=== PATIENT | female | born 1995 | race Caucasian/White ===

== ENCOUNTER 2017-02-15 16:57 | Emergency (ER) | payer OTHER ==
[~2017-02-15] VITALS: Ht 175.3 cm; Wt 113.6 kg
[2017-02-15] MEDS ORDERED: NS 1,000 ML IV SCH (17:32)
[2017-02-15] MEDS ORDERED: ONDANSETRON 4MG/2ML VIAL (J2405) IV ONE (17:45)
[2017-02-15] MEDS ORDERED: NS 1,000 ML IV ONE (17:45)
[2017-02-15] MEDS ORDERED: MORPHINE 2 MG/ML 1ML SYRINGE IV ONE ×3 (17:45→21:45)
[2017-02-15 18:10] LABS: BASO % 0.3 % (0.0-1.0); EOS % 0.3 % (0.0-3.0); LARGE UNSTAINED CELL # 0.1 K/mm3 (0.0-0.4); LYMPH # 1.5 K/mm3 (1.5-6.5); LYMPH % 16.2 % (24.0-44.0); MEAN CORPUSCULAR HEMOGLOBIN 26.7 pg (27.0-33.0); MEAN CORPUSCULAR HGB CONC 33.5 g/dl (32.0-36.5); MEAN CORPUSCULAR VOLUME 79.8 fl (80.0-96.0); MONO # 0.2 K/mm3 (0.0-0.8); MONO % 2.3 % (0.0-5.0); NEUTROPHILS # 6.9 K/mm3 (1.8-7.7); NEUTROPHILS % 79.9 % (36.0-66.0); PLATELET COUNT, AUTOMATED 256 k/mm3 (150-450); RED CELL DISTRIBUTION WIDTH 14.8 % (11.5-14.5); WHITE BLOOD COUNT 8.6 K/mm3 (4.0-10.0)
[2017-02-15 18:15] LABS: INR 1.05
[2017-02-15 18:19] LABS: CONTROL LINE HCG INT CTR LINE PRESENT
[2017-02-15 18:27] LABS: METHADONE URINE NEGATIVE (NEGATIVE)
[2017-02-15 18:32] LABS: ALBUMIN 4.1 GM/DL (3.2-5.2); ALKALINE PHOSPHATASE 76 U/L (45-117); ALT/SGPT 26 U/L (12-78); ANION GAP 8 MEQ/L (8-16); AST/SGOT 13 U/L (15-37); BILIRUBIN,DIRECT 0.1 MG/DL (0.0-0.2); BILIRUBIN,TOTAL 0.5 MG/DL (0.2-1.0); BLOOD UREA NITROGEN 6 MG/DL (7-18); CALCIUM LEVEL 8.7 MG/DL (8.5-10.1); CARBON DIOXIDE LEVEL 25 MEQ/L (21-32); CHLORIDE LEVEL 107 MEQ/L (98-107); CREATININE FOR GFR 0.96 MG/DL (0.55-1.02); GLOMERULAR FILTRATION RATE > 60.0 (>60); GLUCOSE, FASTING 115 MG/DL (70-105); POTASSIUM SERUM 3.4 MEQ/L (3.5-5.1); SODIUM LEVEL 140 MEQ/L (136-145); TOTAL PROTEIN 8.2 GM/DL (6.4-8.2)
[2017-02-15] MEDS ORDERED: ISOVUE-370 76% 100ML VIAL (Q9967) As Ordered ONE (18:34)
[2017-02-15] MEDS ORDERED: NORCO, ANEXSIA 5/325MG TABLET (HYDROcodone/ACETAMINOPHEN) PO ONE (18:45)
[2017-02-15] MEDS ORDERED: POTASSIUM CHLORIDE 10 MEQ SR TABLET PO ONE (18:45)
[2017-02-15 19:00] VITALS: BP 128/81
--- NOTE | 2017-02-15 19:01 | REP ---
Clinical: Generalized abdominal pain. Technique: Axial contrast enhanced images from the lung bases to the pubic symphysis using 100 ml Isovue 370 intravenous contrast material with multiplanar re-formations. Findings: There is a right hydroureteronephrosis and a subtle delayed nephrogram secondary to obstruction by 3 mm distal ureteral calculus (images 136 - 137). 1 mm nonobstructing right renal calculus is also identified in the right kidney. The left kidney/ureter and bladder appear normal. Liver, spleen, pancreas, gallbladder, bilateral adrenal glands are normal. The enteric system is without obstruction or acute inflammatory process. Pelvis demonstrates normal collapsed bladder and age-appropriate uterus/adnexa. No ascites. No free air. No adenopathy. Abdominal aorta without aneurysm. Surrounding musculoskeletal structures are intact. Impression: 1. Acute right-sided obstructive uropathy with a 3 mm calculus in the distal right ureter and 1 mm nonobstructing right renal calculus. Normal left kidney/ureter and bladder. Signed by Julius Rizzo MD 02/15/2017 06:53 P
[2017-02-15] MEDS ORDERED: KETOROLAC 30 MG/ML VIAL (J1885) IV ONE ×2 (19:15→21:45)
[2017-02-15] MEDS ORDERED: KETO10TAB PO (21:50)
[2017-02-15] MEDS ORDERED: OXYC1TAB23 PO (21:50)
== END 2017-02-15 22:50 | disposition home or self-care (01) ==
LOC: M ED 16:57
DX: N20.0 Calculus of kidney (principal)

== ENCOUNTER 2017-05-11 21:31 | Emergency (ER) | payer OTHER ==
[~2017-05-11] VITALS: Ht 175.3 cm; Wt 106.0 kg
[~2017-05-11 21:31] MED LIST: KETO10TAB PO; OXYC1TAB23 PO
[2017-05-11] MEDS ORDERED: PROZ20CA11 PO (21:59)
[2017-05-11 22:19] LABS: CONTROL LINE UCG INT CTR LINE PRESENT
--- NOTE | 2017-05-11 23:20 | REPUSA ---
CT of the chest without contrast Clinical statement: trauma, chest pain. Technique: Multiple axial CT images were obtained with 5 mm cuts through the chest without administra tion of contrast. No comparison is available. Findings: There is no thoracic lymphadenopathy. The visualized portions of the thyroid gland is unrem arkable. There are no pericardial or pleural effusions. The lungs are clear. Limited imaging of the u pper abdomen does not demonstrate any acute abnormalities. There are no suspicious osseous lesions. Impression: Unremarkable CT examination of the chest.
--- NOTE | 2017-05-11 23:30 | REPUSA ---
CT of the abdomen and pelvis without contrast Clinical statement: Pain. Trauma. Technique: Multiple axial CT images were obtained from the base of the lungs to the floor of the pelv is utilizing 5 mm axial slices without administration of contrast. Coronal and sagittal reconstructio ns were also obtained. No comparison is available. Findings: Chest: The visualized lung bases are clear. Abdomen: The kidneys are normal in size bilaterally. There is no evidence of hydronephrosis. A 1 mm s tone is seen in the inferior right renal collecting system. The liver, spleen, pancreas, gallbladder and adrenal glands are unremarkable. The aorta demonstrates normal caliber and contour. There is no a bdominal lymphadenopathy or ascites. Pelvis: Moderate amount of stool fills the colon. The bowel is otherwise unremarkable, with no obstru ctive or inflammatory changes. The urinary bladder is within normal limits. There is no pelvic lympha denopathy or ascites. The other pelvic structures appear unremarkable. Bones: There are no suspicious osseous abnormalities seen. Impression: 1. No evidence of hydronephrosis. 1 mm nonobstructing stone in the right kidney. 2. Moderate constipation. No obstructive or inflammatory bowel changes. 3. No traumatic injury appreciated.
[2017-05-12] MEDS ORDERED: NAPR500T PO (00:08)
[2017-05-12] MEDS ORDERED: KETOROLAC 60 MG/2 ML VIAL (J1885) IM ONE (00:15)
[2017-05-12] MEDS ORDERED: KETOROLAC 30 MG/ML VIAL (J1885) As Ordered ONE (00:22)
[2017-05-12 00:43] VITALS: BP 134/69
--- NOTE | 2017-05-13 13:20 | REP ---
LEFT SHOULDER, THREE VIEWS: There is no evidence of an acute fracture, dislocation or intrinsic bone disease. IMPRESSION: No fracture or dislocation. Signed by Raffi Emerson MD 05/13/2017 07:01 P
== END 2017-05-12 00:46 | disposition home or self-care (01) ==
LOC: M ED 21:31 → EDUNIT# 21:31 → EDBD 21:31 → M ED 05-12 00:46
DX: M25.512 Pain in left shoulder (principal); S20.20XA Contusion of thorax, unspecified, initial encounter; V03.10XA Pedestrian on foot injured in collision with car, pick-up truck or van in traffic accident, initial encounter; Y92.410 Unspecified street and highway as the place of occurrence of the external cause; Y93.89 Activity, other specified; Y99.8 Other external cause status; Z79.899 Other long term (current) drug therapy
CPT/HCPCS: 71250; 73030; 74176; 84703; 96372; 99283; J1885